=== PATIENT | female | born 1965 | race Caucasian/White ===

== ENCOUNTER 2020-07-12 16:41 | Emergency (ER) | payer OTHER ==
[~2020-07-12] VITALS: Ht 170.2 cm; Wt 71.1 kg
--- NOTE | 2020-07-12 17:02 | NUR ---
PT BROUGHT BACK FROM TRIAGE SENT BY DOCTOR FOR POSSIBLE ALLERGIC REACTION. PT DEVELOPED FACIAL SWELLING 3 DAYS AGO. ABLE TO SPEAK FULL SENTANCES, AIRWAY PATENT.
--- NOTE | 2020-07-12 17:08 | NUR ---
NATASHA BOBO AT BEDSIDE FOR EVALUATION
--- NOTE | 2020-07-12 17:12 | NUR ---
ASSUMED CARE OF PATIENT. DR BOBO IN ROOM.
[2020-07-12 17:22] LABS: BASOPHILS % (AUTO) 1 % (0-1); EOSINOPHILS % (AUTO) 14 % (1-7); LYMPHOCYTES % (AUTO) 20 % (22-44); MD NO; MEAN CORPUSCULAR HEMOGLOBIN 30.6 pg (27.0-34.8); MEAN CORPUSCULAR HGB CONC 35.1 g/dL (32.4-35.8); MEAN PLATELET VOLUME 7.1 fL (7.4-10.4); MONOCYTES % (AUTO) 12 % (2-9); NEUTROPHILS % (AUTO) 52 % (42-75); PLATELET COUNT 173 x10^3/uL (130-400); RED BLOOD COUNT 4.01 x10^6/uL (3.82-5.3)
[2020-07-12 17:30] LABS: ALBUMIN 3.9 g/dL (3.4-5.0); ANION GAP 10 mmol/L (5-15); CALCIUM 8.7 mg/dL (8.5-10.1); CHLORIDE 112 mmol/L (98-107); CREATININE 0.82 mg/dL (0.55-1.02)
--- NOTE | 2020-07-12 17:50 | NUR ---
PT WATCHING TV IN ROOM. VS STABLE. CALL LIGHT IN PLACE. WILL CONTINUE TO MONITOR.
--- NOTE | 2020-07-12 17:58 | NUR ---
DR BOBO IN ROOM UPDATING PATIENT
[2020-07-12] MEDS ORDERED: DIPHENHYDRAMINE 50 MG/ML, 1ML ONE (18:26)
--- NOTE | 2020-07-12 18:29 | NUR ---
PT GIVEN CRACKERS OKAYED BY DR BOBO
[2020-07-12] MEDS ORDERED: DIPHENHYDRAMINE 50 MG/ML, 1ML IVPush ONE (18:30)
[2020-07-12] MEDS ORDERED: SODIUM CHLORIDE FLUSH 10ML SYR IVF ONE (18:30)
--- NOTE | 2020-07-12 18:48 | NUR ---
PT MEDICATED BEFORE CT. PT WENT TO CT WITH THIS RN FOR MONITORING. VS STABLE. WILL CONTINUE TO MONITOR.
[2020-07-12] MEDS ORDERED: OMNIPAQUE 350 MG/ML, 100ML BOTTLE ONE (19:00)
--- NOTE | 2020-07-12 19:08 | NUR ---
Bedside Report given to JAIME Benites
--- NOTE | 2020-07-12 19:14 | NUR ---
report recived from Elsa SANDOVAL
[2020-07-12 20:30] VITALS: BP 139/90
== END 2020-07-12 20:32 | disposition home or self-care (01) ==
LOC: ED 20:00
DX: R22.0 Localized swelling, mass and lump, head (principal); R07.89 Other chest pain
CPT/HCPCS: 36415; 70487; 71045; 80048; 82040; 85025; 96374; 99285; J1200; J7512; Q9967

== ENCOUNTER 2021-01-29 11:58 | Inpatient (IN) | payer OTHER ==
[~2021-01-29] VITALS: Ht 170.2 cm; Wt 68.9 kg
[~2021-01-29 11:58] MED LIST: CEFTRIAXONE 1,000 MG IVPB ONE
--- NOTE | 2021-01-29 13:19 | NUR ---
PT C/O DECREASED APPETITE FOR LAST COUPLE DAYS. PT SEEN AT ONCOLOGY YESTERDAY AND RECEIVED 1L NS INFUSION. DX: BRAIN CA LAST YEAR. PT TAPERING OFF STEROIDS AND CLOSE TO END OF TAPER. PER PT BROTHER PT HAS HAD BOUGHTS OF CONFUSION TODAY. PIV PLACED, LABS DRAWN. PT CONNECTED TO MONITORING. CALL LIGHT IN REACH. AWAITING ORDERS.
[2021-01-29] MEDS ORDERED: ACETAMINOPHEN 325 MG TABLET PO ONE (14:00)
[2021-01-29] MEDS ORDERED: SODIUM CHLORIDE FLUSH 10ML SYR IVF ONE (14:00)
[2021-01-29] MEDS ORDERED: methylPREDNISolone SOD SUCC 125 MG/2 ML IVPush ONE (14:00)
[2021-01-29] MEDS ORDERED: DIPHENHYDRAMINE 50 MG/ML, 1ML IVPush ONE (14:00)
[2021-01-29] MEDS ORDERED: methylPREDNISolone SOD SUCC 125 MG/2 ML ONE (14:09)
[2021-01-29] MEDS ORDERED: ACETAMINOPHEN 325 MG TABLET ONE (14:09)
[2021-01-29] MEDS ORDERED: DIPHENHYDRAMINE 50 MG/ML, 1ML ONE (14:09)
--- NOTE | 2021-01-29 14:17 | NUR ---
REPORT FROM JAIME DHALIWAL AT THIS TIME. PT RESTING IN [facility], MONITORING IN PLACE, BROTHER AT BEDSIDE, NADN AT THIS TIME, PT MEDICATED PER EMAR, XRAY AT BEDSIDE FOR CXR, WCTM.
[2021-01-29 14:29] LABS: MEAN CORPUSCULAR HGB CONC 34.4 g/dL (32.4-35.8); MEAN PLATELET VOLUME 7.1 fL (7.4-10.4); PLATELET COUNT 106 x10^3/uL (130-400); RED BLOOD COUNT 3.51 x10^6/uL (3.82-5.3); RED CELL DISTRIBUTION WIDTH 18.9 % (9.6-15.2)
[2021-01-29 14:33] LABS: ALANINE AMINOTRANSFERASE 59 U/L (12-78); ANION GAP 8 mmol/L (5-15); CALCIUM 9.1 mg/dL (8.5-10.1); CHLORIDE 102 mmol/L (98-107); CREATININE 0.74 mg/dL (0.55-1.02)
[2021-01-29 14:36] LABS: ALKALINE PHOSPHATASE 75 U/L (45-117); TOTAL PROTEIN 7.2 g/dL (6.4-8.2)
[2021-01-29 14:58] LABS: BAND#(MANUAL) 0.15 x10^3/uL; BANDS%(MANUAL) 4 % (0-7); EOS#(MANUAL) 0.04 x10^3/uL (0.0-0.4); EOS% (MANUAL) 1 % (1-7); LYMPH#(MANUAL) 0.23 x10^3/uL (1-3.4); LYMPHS% (MANUAL) 6 % (22-44); MONOS#(MANUAL) 0.27 x10^3/uL (0.3-2.7); MONOS% (MANUAL) 7 % (2-9); SEG#(MANUAL) 3.12 x10^3/uL (1.8-6.8); SEGS% (MANUAL) 82 % (42-75)
[2021-01-29 14:59] LABS: ANISOCYTOSIS 1+; POLYCHROMASIA 1+
[2021-01-29 15:00] LABS: <PLATELET ESTIMATE> DECREASED; SMALL PLATELETS 1+
[2021-01-29] MEDS ORDERED: GADOTERATE 7.5 MMOL/15ML SYR ONE (15:07)
[2021-01-29] MEDS ORDERED: AZITHROMYCIN 500 MG in SODIUM CHLORIDE 0.9% 250 ML IVPB ONE (16:30)
[2021-01-29] MEDS ORDERED: CEFTRIAXONE 1,000 MG in DEXTROSE 5% 50 ML IVPB ONE (16:30)
[2021-01-29] MEDS ORDERED: ONDANSETRON ODT 4 MG PO PRN (18:00)
[2021-01-29] MEDS ORDERED: ACETAMINOPHEN 325 MG TABLET PO PRN (18:00)
[2021-01-29] MEDS ORDERED: ONDANSETRON 2MG/ML, 2ML IVPush PRN (18:00)
[2021-01-29 18:28] LABS: ANION GAP 6 mmol/L (5-15); CHLORIDE 104 mmol/L (98-107); CREATININE 0.68 mg/dL (0.55-1.02)
[2021-01-29 19:11] LABS: MICROSCOPIC INDICATED
[2021-01-29] MEDS: SODIUM CHLORIDE 0.9% 1,000 ML IV SCH (19:38)
[2021-01-29] MEDS: FAMOTIDINE 20 MG TABLET PO SCH (20:16)
[2021-01-29] MEDS: DEXAMETHASONE 4 MG/ML, 1ML IVPush SCH (20:17)
[2021-01-29 20:20] VITALS: BP 137/93
[2021-01-29] MEDS ORDERED: Decadron PO (21:21)
[2021-01-29] MEDS ORDERED: POTA20TA89 PO (21:21)
[2021-01-29] MEDS ORDERED: TRAZ50TA66 PO (21:21)
[2021-01-29] MEDS ORDERED: PARO20TA4 PO (21:21)
[2021-01-29] MEDS ORDERED: LEVE500T8 PO (21:21)
[2021-01-29] MEDS ORDERED: LOSA25TA12 PO (21:21)
[2021-01-29] MEDS ORDERED: GABA300C PO (21:21)
[2021-01-29] MEDS ORDERED: AZITHROMYCIN 500 MG in SODIUM CHLORIDE 0.9% 250 ML IV SCH (22:00)
[2021-01-30 02:57] VITALS: BP 154/89
[2021-01-30] MEDS: DEXAMETHASONE 4 MG/ML, 1ML IVPush SCH ×2 (03:11→08:49)
[2021-01-30] MEDS ORDERED: CEFTRIAXONE 2 GM in DEXTROSE 5% 50 ML IVPB SCH (04:00)
[2021-01-30 05:08] LABS: BASOPHILS % (AUTO) 0 % (0-1); EOSINOPHILS % (AUTO) 0 % (1-7); LYMPHOCYTES % (AUTO) 7 % (22-44); MEAN CORPUSCULAR HEMOGLOBIN 33.3 pg (27.0-34.8); MEAN CORPUSCULAR HGB CONC 34.9 g/dL (32.4-35.8); MONOCYTES % (AUTO) 3 % (2-9); NEUTROPHILS % (AUTO) 90 % (42-75); PLATELET COUNT 104 x10^3/uL (130-400); RED BLOOD COUNT 2.98 x10^6/uL (3.82-5.3); RED CELL DISTRIBUTION WIDTH 18.1 % (9.6-15.2)
[2021-01-30 07:38] VITALS: BP 153/89
[2021-01-30] MEDS: SODIUM CHLORIDE 0.9% 1,000 ML IV SCH (08:49)
[2021-01-30] MEDS: FAMOTIDINE 20 MG TABLET PO SCH (08:49)
[2021-01-30] MEDS ORDERED: AZIT250T PO (14:30)
[2021-01-30] MEDS ORDERED: CEFD300C37 PO (14:30)
[2021-01-30] MEDS ORDERED: DEXA4TAB66 PO (14:30)
[2021-01-30 14:59] VITALS: BP 150/88
[2021-01-30] MEDS ORDERED: DEXAMETHASONE 4 MG/ML, 1ML IVPush SCH (21:00)
== END 2021-01-30 16:40 | disposition home or self-care (01) | DRG 871 ==
LOC: ED 15:14 → SUATTDRO 16:32 → EDIP 17:47 → 4NW 19:21
PROVIDERS: ADMIT Family Medicine; ATTEND Family Medicine
PROC: 0T9B70Z Drainage of Bladder with Drainage Device, Via Natural or Artificial Opening (ICD-10-PCS; principal; 2021-01-29)
DX: A41.9 Sepsis, unspecified organism (principal); J15.9 Unspecified bacterial pneumonia; C71.9 Malignant neoplasm of brain, unspecified; G43.909 Migraine, unspecified, not intractable, without status migrainosus; Z20.822 Contact with and (suspected) exposure to COVID-19; M10.9 Gout, unspecified; Z98.82 Breast implant status
CPT/HCPCS: 36415; 70553; 71045; 80048; 80053; 81001; 82140; 83605; 83735; 84145; 85025; 87040; 87086; 93005; 96374; 96375; 99285; G0378; J0456; J0696; J1100; U0005; A9575; J1200; J2930; J7030; J7050; U0003